=== PATIENT | male | born 1965 | race Caucasian/White ===

== ENCOUNTER 2022-01-07 18:29 | Inpatient (IN) | payer BC ==
[~2022-01-07] VITALS: Ht 177.8 cm; Wt 117.0 kg
[2022-01-07 20:10] LABS: HEMOGLOBIN 13.7 gm/dl (14.0-17.5); RED BLOOD COUNT 4.66 M/UL (4.20-5.50); WHITE BLOOD COUNT 20.4 K/UL (4.5-11.0)
[2022-01-07 20:41] LABS: BUN/CREATININE RATIO 28 (0-10)
[2022-01-08 05:22] LABS: HEMOGLOBIN 11.3 gm/dl (14.0-17.5); RED BLOOD COUNT 3.87 M/UL (4.20-5.50); WHITE BLOOD COUNT 18.5 K/UL (4.5-11.0)
[2022-01-08 05:45] LABS: BUN/CREATININE RATIO 37 (0-10)
[2022-01-08] MEDS ORDERED: METFORMIN HCL1000 MG PO (09:56)
[2022-01-08] MEDS ORDERED: DICLOFENAC SODI75 MG PO (09:57)
[2022-01-08] MEDS ORDERED: GABAPENTIN400 MG PO (09:58)
[2022-01-08] MEDS ORDERED: TRAMADOL HCL50 MG PO (09:59)
[2022-01-08] MEDS ORDERED: PIOGLITAZONE HC30 MG PO (10:00)
[2022-01-08] MEDS ORDERED: ALLOPURINOL300 MG PO (10:00)
[2022-01-08] MEDS ORDERED: LISINOPRIL10 MG PO (10:01)
[2022-01-08] MEDS ORDERED: TRULICITY1.5 MG/0.5 SQ (10:02)
[2022-01-08 11:20] LABS: CANDIDA ALBICANS Not Detected (Negative); CANDIDA KRUSEI Not Detected (Negative); CANDIDA TROPICALIS Not Detected (Negative); ESCHERICHIA COLI Not Detected (Negative); HAEMOPHILUS INFLUENZAE Not Detected (Negative); KLEBSIELLA OXYTOCA Not Detected (Negative); KLEBSIELLA PNEUMONIAE Not Detected (Negative); KPC-CARBAPENEM-RESISTANCE GENE Not Detected (Negative); PROTEUS Not Detected (Negative); PSEUDOMONAS AERUGINOSA Not Detected (Negative); SERRATIA MARCESANS Not Detected (Negative); STREP AGALACTIAE (GROUP B) Not Detected (Negative); STREP PYOGENES (GROUP A) Not Detected (Negative); STREPTOCOCCUS Not Detected (Negative); vanA/B (VANCOMYCIN RESIST GENE Not Detected (Negative)
[2022-01-08 11:43] LABS: STAPHYLOCOCCUS DETECTED (Negative); STAPHYLOCOCCUS AUREUS DETECTED (Negative)
[2022-01-08 12:39] LABS: BUN/CREATININE RATIO 36 (0-10)
[2022-01-08 18:10] LABS: BUN/CREATININE RATIO 37 (0-10)
[2022-01-09 02:02] LABS: HEMOGLOBIN 11.8 gm/dl (14.0-17.5); RED BLOOD COUNT 4.03 M/UL (4.20-5.50); WHITE BLOOD COUNT 18.4 K/UL (4.5-11.0)
[2022-01-09 02:25] LABS: BUN/CREATININE RATIO 38 (0-10)
[2022-01-10 04:23] LABS: HEMOGLOBIN 11.1 gm/dl (14.0-17.5); RED BLOOD COUNT 3.88 M/UL (4.20-5.50); WHITE BLOOD COUNT 14.5 K/UL (4.5-11.0)
[2022-01-10 04:48] LABS: BUN/CREATININE RATIO 28 (0-10)
[2022-01-11 03:22] LABS: HEMOGLOBIN 11.3 gm/dl (14.0-17.5); RED BLOOD COUNT 3.89 M/UL (4.20-5.50); WHITE BLOOD COUNT 12.5 K/UL (4.5-11.0)
[2022-01-11 03:43] LABS: BUN/CREATININE RATIO 29 (0-10)
[2022-01-11 14:48] LABS: CANDIDA ALBICANS Not Detected (Negative); CANDIDA KRUSEI Not Detected (Negative); CANDIDA TROPICALIS Not Detected (Negative); ESCHERICHIA COLI Not Detected (Negative); HAEMOPHILUS INFLUENZAE Not Detected (Negative); KLEBSIELLA OXYTOCA Not Detected (Negative); KLEBSIELLA PNEUMONIAE Not Detected (Negative); KPC-CARBAPENEM-RESISTANCE GENE Not Detected (Negative); PROTEUS Not Detected (Negative); PSEUDOMONAS AERUGINOSA Not Detected (Negative); SERRATIA MARCESANS Not Detected (Negative); STREP AGALACTIAE (GROUP B) Not Detected (Negative); STREP PYOGENES (GROUP A) Not Detected (Negative); STREPTOCOCCUS Not Detected (Negative); vanA/B (VANCOMYCIN RESIST GENE Not Detected (Negative)
[2022-01-11 16:18] LABS: STAPHYLOCOCCUS DETECTED (Negative); STAPHYLOCOCCUS AUREUS DETECTED (Negative)
[2022-01-12 02:48] LABS: HEMOGLOBIN 12.9 gm/dl (14.0-17.5)
[2022-01-12 02:53] LABS: RED BLOOD COUNT 4.48 M/UL (4.20-5.50); WHITE BLOOD COUNT 17.8 K/UL (4.5-11.0)
[2022-01-12 03:02] LABS: BUN/CREATININE RATIO 26 (0-10)
[2022-01-14 15:27] LABS: BUN/CREATININE RATIO 19 (0-10)
[2022-01-15 03:39] LABS: RED BLOOD COUNT 3.84 M/UL (4.20-5.50); WHITE BLOOD COUNT 16.3 K/UL (4.5-11.0)
[2022-01-15 04:24] LABS: BUN/CREATININE RATIO 17 (0-10)
[2022-01-16 03:24] LABS: HEMOGLOBIN 11.4 gm/dl (14.0-17.5); RED BLOOD COUNT 3.96 M/UL (4.20-5.50); WHITE BLOOD COUNT 17.6 K/UL (4.5-11.0)
[2022-01-16 03:50] LABS: BUN/CREATININE RATIO 14 (0-10)
[2022-01-17 06:57] LABS: HEMOGLOBIN 9.7 gm/dl (14.0-17.5); RED BLOOD COUNT 3.42 M/UL (4.20-5.50); WHITE BLOOD COUNT 12.6 K/UL (4.5-11.0)
[2022-01-17 07:38] LABS: BUN/CREATININE RATIO 16 (0-10)
[2022-01-18 01:24] LABS: HEMOGLOBIN 9.5 gm/dl (14.0-17.5); RED BLOOD COUNT 3.38 M/UL (4.20-5.50); WHITE BLOOD COUNT 10.1 K/UL (4.5-11.0)
[2022-01-18 01:42] LABS: BUN/CREATININE RATIO 10 (0-10)
[2022-01-19 03:45] LABS: HEMOGLOBIN 9.8 gm/dl (14.0-17.5); RED BLOOD COUNT 3.45 M/UL (4.20-5.50); WHITE BLOOD COUNT 11.2 K/UL (4.5-11.0)
[2022-01-19 04:11] LABS: BUN/CREATININE RATIO 9 (0-10)
[2022-01-20 04:45] LABS: HEMOGLOBIN 10.1 gm/dl (14.0-17.5); RED BLOOD COUNT 3.61 M/UL (4.20-5.50); WHITE BLOOD COUNT 8.8 K/UL (4.5-11.0)
[2022-01-20 05:06] LABS: BUN/CREATININE RATIO 9 (0-10)
[2022-01-21 04:50] LABS: HEMOGLOBIN 9.8 gm/dl (14.0-17.5); RED BLOOD COUNT 3.48 M/UL (4.20-5.50); WHITE BLOOD COUNT 7.2 K/UL (4.5-11.0)
[2022-01-21 05:31] LABS: BUN/CREATININE RATIO 8 (0-10)
[2022-01-22 03:00] LABS: HEMOGLOBIN 9.7 gm/dl (14.0-17.5); RED BLOOD COUNT 3.43 M/UL (4.20-5.50); WHITE BLOOD COUNT 8.7 K/UL (4.5-11.0)
[2022-01-22 03:42] LABS: BUN/CREATININE RATIO 12 (0-10)
[2022-01-22] MEDS ORDERED: DAPTOMYCIN350 MG IV (10:39)
--- NOTE | 2022-01-22 13:27 | NUR ---
report given to admitting nurse -[facility]
== END 2022-01-22 14:35 | disposition home or self-care (01) | DRG 871 ==
LOC: ER1 18:29 → M/S 23:34 → CDU 23:34 → M/S 01-08 09:30
PROVIDERS: Family Medicine; Internal Medicine; Internal Medicine Infectious Disease; Physician Assistant; Podiatrist Foot & Ankle Surgery; ADMIT Internal Medicine
PROC: 3E03329 Introduction of Other Anti-infective into Peripheral Vein, Percutaneous Approach (ICD-10-PCS; 2022-01-07)
PROC: 8E0ZXY6 Isolation (ICD-10-PCS; 2022-01-07)
PROC: XW043E5 Introduction of Remdesivir Anti-infective into Central Vein, Percutaneous Approach, New Technology Group 5 (ICD-10-PCS; 2022-01-07)
PROC: 4A133R1 Monitoring of Arterial Saturation, Peripheral, Percutaneous Approach (ICD-10-PCS; 2022-01-07)
PROC: B24BZZZ Ultrasonography of Heart with Aorta (ICD-10-PCS; 2022-01-09)
PROC: 0J9Q0ZZ Drainage of Right Foot Subcutaneous Tissue and Fascia, Open Approach (ICD-10-PCS; principal; 2022-01-16 12:00)
PROC: 02HV33Z Insertion of Infusion Device into Superior Vena Cava, Percutaneous Approach (ICD-10-PCS; 2022-01-21)
PROC: B548ZZA Ultrasonography of Superior Vena Cava, Guidance (ICD-10-PCS; 2022-01-21)
DX: A41.01 Sepsis due to Methicillin susceptible Staphylococcus aureus (principal); J12.82 Pneumonia due to coronavirus disease 2019; J69.0 Pneumonitis due to inhalation of food and vomit; U07.1 COVID-19; J96.01 Acute respiratory failure with hypoxia; M00.812 Arthritis due to other bacteria, left shoulder; L02.611 Cutaneous abscess of right foot; M60.08 Infective myositis, other site; N17.9 Acute kidney failure, unspecified; F11.20 Opioid dependence, uncomplicated; L03.113 Cellulitis of right upper limb; R65.20 Severe sepsis without septic shock; E87.5 Hyperkalemia; I10 Essential (primary) hypertension; E78.5 Hyperlipidemia, unspecified; E11.40 Type 2 diabetes mellitus with diabetic neuropathy, unspecified; M10.9 Gout, unspecified; J44.9 Chronic obstructive pulmonary disease, unspecified; E86.1 Hypovolemia; E11.65 Type 2 diabetes mellitus with hyperglycemia; E66.9 Obesity, unspecified; E11.649 Type 2 diabetes mellitus with hypoglycemia without coma; Z79.4 Long term (current) use of insulin
CPT/HCPCS: ECHO; 36415; 36600; 71045; 71250; 71275; 73030; 73130; 73220; 73718; 80048; 80053; 80202; 81001; 82009; 82550; 82553; 82803; 82962; 83605; 83615; 83735; 83880; 84100; 84134; 84484; 85007; 85025; 85027; 85379; 85652; 86140; 87040; 87070; 87077; 87086; 87150; 87186; 87205; 93005; 93306; 93971; 94640; 94664; 94760; 94762; 96374; 96375; 96376; 99285; A9577; C1751; G0378; J0248; J0295; J0692; J0696; J0878; J1100; J1650; J2250; J2270; J2310; J2795; J3010; J3370; J7030; J7040; J7050; J7070; Q9967; U0002